=== PATIENT | male | born 1965 | race Caucasian/White ===

== ENCOUNTER → 2021-01-02 | Outpatient (CLI) | payer MEDICARE, OTHER ==
[~2021-01-02] MED LIST: CATAPRES 0.1MG0.1 MG PO; CYMBALTA 30 MG30 MG PO; ELIQUIS2.5 MG PO; FLEXERIL 10 MG10 MG PO; HYDRALAZINE HCL50 MG PO; LASIX40 MG PO; PERCOCET 10-321 EACH PO; ULTRAM50 MG PO; ZESTRIL30 MG PO
== END ==
LOC: EMI 13:00
DX: G82.20 Paraplegia, unspecified (principal); M51.34 Other intervertebral disc degeneration, thoracic region; I63.81 Other cerebral infarction due to occlusion or stenosis of small artery; M47.812 Spondylosis without myelopathy or radiculopathy, cervical region
CPT/HCPCS: 70551; 72141; 72146